=== PATIENT | female | born 2000 | race Caucasian/White ===

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

== ENCOUNTER 2021-03-29 14:28 | Outpatient (CLI) | payer BC, MEDICAID ==
[~2021-03-29] VITALS: Ht 165.1 cm; Wt 109.5 kg
[~2021-03-29 14:28] MED LIST changes: +PHENERGAN 25 TA25 MG PO
--- NOTE | 2021-03-29 14:35 | NUR ---
Patient arrives ambulatory with FOB with concerns of possible SROM around 1000 today. Patient reports intercourse this morning around 0930 and then noticed clear leaking around 1000. Patient reports occasional cramping but denies contractions, vaginal bleeding. Reports normal movement. Patient changes into gown, EFM explained and placed. VS obtained. 1440- Amniotest negative. SVE closed/thick/high with vaginal vault noted very dry, no fluid noted on glove. Patient repositioned WL and assessment completed. See physician notification.
[2021-03-29] MEDS ORDERED: ZOFRAN 4MG T4 MG/TAB PO (14:50)
[2021-03-29] MEDS ORDERED: ZOLOFT 25MG25 MG PO (14:50)
[2021-03-29 15:05] VITALS: BP 130/76; PULSE 106; TEMP 98
--- NOTE | 2021-03-29 15:06 | NUR ---
Patient given discharge instructions. Reviewed labor precautions and kick counts, encouraged to follow up as scheduled. Patient denies questions and leaves ambulatory with FOB.
== END 2021-03-29 15:09 | disposition home or self-care (01) ==
LOC: LDRO 14:28 → LDR 14:35 → LDRO 15:09
DX: O42.913 Preterm premature rupture of membranes, unspecified as to length of time between rupture and onset of labor, third trimester (principal); Z3A.35 35 weeks gestation of pregnancy
CPT/HCPCS: OP

== ENCOUNTER → 2021-04-17 | Outpatient (CLI) | payer BC, MEDICAID ==
[~2021-04-17] MED LIST changes: +MOTRIN 800800 MG/TAB PO; +ZOFRAN 4MG T4 MG/TAB PO; +ZOLOFT 25MG25 MG PO
== END ==
LOC: ZCOL.LAB 12:00
DX: Z20.822 Contact with and (suspected) exposure to COVID-19 (principal)

== ENCOUNTER 2021-04-21 05:20 | Inpatient (IN) | payer BC, MEDICAID ==
[2021-04-21] VITALS (19 sets, daily range): BP systolic 101–144; BP diastolic 44–88; PULSE 76–114; TEMP 97.1–98.6
[~2021-04-21] VITALS: Ht 165.1 cm; Wt 111.4 kg
[~2021-04-21 05:20] MED LIST changes: -MOTRIN 800800 MG/TAB PO
--- NOTE | 2021-04-21 05:25 | NUR ---
Pt ambulatory to 211 for scheduled with spouse. Clean gown on. EFM and TOCO explained and applied. Pt denies leaking of fluids, vaginal bleeding or contractions at this time. Reports good movement. Plan of care explained. 0545: IV started and labs obtained via IV site. LR bolus infusing without difficulties.
[2021-04-21 06:00] LABS: BASO % 0.4 % (0.0-2.0); EOS # 0.1 (0.0-0.7); GRAN # 5.8 (1.4-6.5); GRAN % 63.8 % (42.2-75.2); HEMOGLOBIN 11.5 g/dl (12.0-15.0); LYMPH # 2.3 (1.2-3.4); LYMPH % 25.2 % (20.0-51.0); MEAN CELL VOLUME 90 fl (80.0-95.0); MEAN CORPUSCULAR HEMOGLOBIN 30 pg (26.0-32.0); MEAN CORPUSCULAR HGB CONC 33 g/dl (33.0-37.0); MONO # 0.8 (0.1-0.6); PLATELET COUNT 256 K/mm3 (130-400); RED BLOOD COUNT 3.87 M/mm3 (4.10-5.30); REDCELL DISTRIBUTION WIDTH-CV 13.2 % (11.5-14.5)
[2021-04-21 06:02] LABS: HEMATOCRIT 34.8 % (35.0-45.0)
--- NOTE | 2021-04-21 06:20 | NUR ---
0620-Patient in room with LR infusing into right hand IV per order. Reports GFM. Reactive NST per overnight cashier RN Fernando Ladd,TYLER. VSS. Assessment complete. Consents reviewed and signed. Denies current needs. Abdomen cleansed per protocol. Awaiting scheduled surgery time.
--- NOTE | 2021-04-21 08:35 | NUR ---
0835-To PACU via bed. A&O x4 VSS, see recovery flow record. Denies pain. Abdominal incision c/d/i. Fundal massage firm. Lochia moderate without clots. Paris pad in place. Binder to abdomen. Recieved report from SUZANNE Garrett. Will remain in PACU with patient per protocol.
--- NOTE | 2021-04-21 09:15 | NUR ---
0915-Patient back to 211, updated on plan of care and safety. Fundal massage firm. Kam STILES. VSS, see recovery flow record. Infant to breast, spouse at bedside.
--- NOTE | 2021-04-21 15:00 | NUR ---
Soy MENDEZ by this RN. Paris care by patient. Standing and ambulating in room with steady gait. Updated on safety and plan of care.
--- NOTE | 2021-04-21 18:30 | NUR ---
Report received. Mother and father in bed with babe, babe asleep in mom's arms. Plan of care reviewed with patient, medication times reviewed, explained that 2 more voids were needed. Questions invited and answered at this time. Will continue to monitor.
[2021-04-22] VITALS: BP 116/59; PULSE 85; TEMP 97.8
[2021-04-22 04:15] VITALS: BP 112/55; PULSE 77; TEMP 97.5
--- NOTE | 2021-04-22 06:57 | NUR ---
REPORT RECEIVED FROM OFF GOING RN, KHRIS King CARE TAKEN OVER BY THIS RN.
[2021-04-22 08:44] VITALS: BP 112/67; PULSE 86; TEMP 97.5
--- NOTE | 2021-04-22 10:08 | NUR ---
Initial visit; Parents thanked [employer]itness [employer] Manager for offering congratulations and God's blessings for the of their daughter. Fitness Centre Manager thanked family for choosing [facility].
[2021-04-22 17:30] VITALS: BP 117/71; PULSE 81; TEMP 98.2
--- NOTE | 2021-04-22 18:40 | NUR ---
REPORT RECEIVED. THIS RN TO ROOM TO UPDATE PATIENT ON PLAN OF CARE FOR THE NIGHT. UPDATED WHITEBOARD AT THIS TIME. MOM IN BED CHANGING BABE'S DIAPER AT THIS TIME. FOB ALSO IN ROOM AT THIS TIME. QUESTIONS INVITED AND ANSWERED.
[2021-04-22 20:15] VITALS: BP 121/61; PULSE 84; TEMP 98.1
[2021-04-23 07:45] VITALS: BP 117/69; PULSE 91; TEMP 97.6
[2021-04-23] MEDS ORDERED: PERCOCET 325 MG1 TA2 PO (08:05)
[2021-04-23] MEDS ORDERED: MOTRIN 800800 MG/TAB PO (08:05)
--- NOTE | 2021-04-23 09:30 | NUR ---
Discharge instructions and follow up care reviewed with pt and at the bedside. Both verbalized an understanding, agreed with the plan and state no questions or concerns.
== END 2021-04-23 10:17 | disposition home or self-care (01) | DRG 788 ==
LOC: OB 05:20
PROVIDERS: ADMIT Obstetrics & Gynecology
PROC: 10D00Z1 Extraction of Products of Conception, Low, Open Approach (ICD-10-PCS; principal; 2021-04-21)
DX: O34.211 Maternal care for low transverse scar from previous cesarean delivery (principal); Z3A.39 39 weeks gestation of pregnancy; Z37.0 Single live birth; O69.81X0 Labor and delivery complicated by cord around neck, without compression, not applicable or unspecified; O76 Abnormality in fetal heart rate and rhythm complicating labor and delivery
CPT/HCPCS: J0690; J1100; J1885; J2370; J2405; J2590; J7120